=== PATIENT | female | born 1985 ===

== ENCOUNTER 2017-10-03 07:49 | Inpatient (IN) | payer OTHER ==
[2017-10-03] VITALS (14 sets, daily range): BP systolic 93–109; BP diastolic 41–63
[~2017-10-03] VITALS: Ht 162.6 cm; Wt 43.5 kg
[~2017-10-03 07:49] MED LIST: Bacitracin 50000 Units Vial ONE; CARISOPRODOL350 MG ORAL; IBUPROFEN600 MG ORAL; NORCO 5-325 TA1 EAC1 ORAL; Thrombin 5000 units TOPIC ONE; Vancomycin 1 GM in D5W 275 ML IVPB ONE; Vancomycin 1gm inj IVPB ONE
[2017-10-03] MEDS ORDERED: LR 1000ml ONE (08:00)
[2017-10-03] MEDS ORDERED: Dexamethasone 4mg/ml vial ONE (08:00)
[2017-10-03] MEDS ORDERED: NS Irrig 1000ml ONE (08:00)
[2017-10-03] MEDS ORDERED: fentaNYL 100 mcg/2 mL IV ONE (08:00)
[2017-10-03] MEDS ORDERED: Zemuron 50mg/5ml Inj IV ONE (08:00)
[2017-10-03] MEDS ORDERED: Sterile Water Irrig 1000ml IRRIG ONE (08:00)
[2017-10-03] MEDS ORDERED: Midazolam 2mg/2ml Inj ONE (08:00)
[2017-10-03] MEDS ORDERED: Propofol 200mg/20ml IV ONE (08:00)
[2017-10-03] MEDS ORDERED: Morphine Sulfate 10mg/ml Inj ONE (08:00)
[2017-10-03] MEDS ORDERED: Succinylcholine 20mg/ml 10ml vial ONE (08:00)
[2017-10-03] MEDS ORDERED: TransDerm Scop 1mg/72HR Patch TDERMAL ONE (09:19)
--- NOTE | 2017-10-03 10:25 | Pre-Procedure Note/Attestation ---
Pre-Procedure Note/Attestation Complete Prior to Procedure Planned Procedure: not applicable Procedure Narrative: C56 Artificial disc replacement Indications for Procedure Pre-Operative Diagnosis: C56 herniation Attestation I attest that I discussed the nature of the procedure; its benefits; risks and complications; and alternatives (and the risks and benefits of such alternatives ), prior to the procedure, with the patient (or the patient's legal senior patient account representative). I attest that, if there was a reasonable possibility of needing a blood transfusion, the patient (or the patient's legal senior patient account representative) was given the [facility] standardized written summary, pursuant to the Jimmy Escobar Blood Safety Act ([place] Health and Safety Code # 1645, as amended). I attest that I re-evaluated the patient just prior to the surgery and that there has been no change in the patient's H&P, except as documented below: Mitchell Kirkland MD Oct 03, 2017 10:25
--- NOTE | 2017-10-03 10:26 | Brief Operative Note ---
Immediate Post Operative Note Operative Note Chief Complaint: neck pain and radiculopathy Pre-op Diagnosis: C56 herniation Procedure: C56 Artificial disc replacement Post-op Diagnosis: same as pre-op Findings: consistent w/pre-op dx studies Surgeon: Marita Airport Driver: Francisco Anesthesiologist: JUDE Anesthesia: general Specimen: none Complications: none Condition: stable Estimated Blood Loss: minimal Drains: none Implant(s) used?: Yes - Prodisc C sz5 Mitchell Kirkland MD Oct 03, 2017 10:26
[2017-10-03] MEDS ORDERED: Norco 5mg/325mg tab ORAL PRN (10:30)
[2017-10-03] MEDS ORDERED: Naloxone 0.4mg/ml Inj IVP PRN (10:30)
[2017-10-03] MEDS ORDERED: HYDROcodone/Acetamin 7.5/325 tab ORAL PRN ×2 (10:30)
[2017-10-03] MEDS ORDERED: Morphine Sulfate 4mg/ml Inj SUBQ PRN ×2 (10:30)
[2017-10-03] MEDS ORDERED: Morphine Sulfate 2mg/ml Inj SUBQ PRN (10:30)
[2017-10-03] MEDS ORDERED: Propofol 1,000mg/ 100ml btl IV ONE (10:30)
[2017-10-03] MEDS ORDERED: HYDROmorphone 1mg/ml Carpuject IVP PRN (10:30)
[2017-10-03] MEDS ORDERED: Chloraseptic Spray 20mL Bottle ORAL PRN (10:30)
[2017-10-03] MEDS ORDERED: Milk of Magnesia 30ml Ud ORAL PRN (10:30)
--- NOTE | 2017-10-03 11:05 | Anethesia Preoperative Eval ---
Anesthesia Pre-op PMH/ROS General Date of Evaluation: Oct 03, 2017 Time of Evaluation: 10:05 Anesthesiologist: Mathieu ASA Score: ASA 2 Mallampati Score Class I : Soft palate, uvula, fauces, pillars visible Class II: Soft palate, uvula, fauces visible Class III: Soft palate, base of uvula visible Class IV: Only hard plate visible Mallampati Classification: Class II Surgeon: Marita Diagnosis: Cervikal radiculopathy Surgical Procedure: ACDF C5-C6 Anesthesia History: none Family History: no anesthesia problems Allergies: Coded Allergies: PENICILLINS (Verified Allergy, Intermediate, 10/02/17) ITCHING ,SWOLLEN LIPS Medications: see eMAR Past Medical History Cardiovascular: Denies: HTN, CAD, [place], valve dz, arrhythmia, other Pulmonary: Denies: asthma, COPD, SHLOMO, other Gastrointestinal/Genitourinary: Reports: GERD - mild; Denies: CRI, ESRD, other Neurologic/Psychiatric: Reports: other - chronic pain; Denies: dementia, CVA, depression/anxiety, TIA Endocrine: Denies: DM, hypothyroidism, steroids, other HEENT: Denies: cataract (L), cataract (R), glaucoma, AUGUSTINE (L), AUGUSTINE (R), other Hematology/Immune: Denies: anemia, DVT, bleeding disorder, other Musculoskeletal/Integumentary: Denies: OA, RA, DJD, DDD, edema, other PMH Narrative: as above PSxH Narrative: none Anesthesia Pre-op Phys. Exam Physician Exam Last Vital Signs Date Time Temp Pulse Resp B/P (MAP) Pulse Ox O2 Delivery O2 Flow Rate FiO2 10/03/17 08:50 97.7 74 20 109/63 100 Room Air 97.7 Constitutional: NAD Neurologic: CN 2-12 intact Cardiovascular: RRR, no M/R/G Respiratory: CTA Gastrointestinal: S/NT/ND Airway Exam Mallampati Score: Class II MO: full Neck: flexible ROM: full Teeth: intact Dentures: no upper, no lower Anesthesia Pre-op A/P Labs see chart Urine Test Test 10/03/17 08:00 Urine HCG, Qualitative Negative (NEGATIVE) Studies Pre-op Studies: EKG - NSR, CXR - WNL, echo - EF 55-60% Risk Assessment & Plan Assessment: ASA 2 Plan: GA with ETT PONV prevention scopolamine patch on, neuromonitoring Status Change Before Surgery: No Pre-Antibiotics Drug: Vancomycin 500 mg. Given Within 1 Hr of Incision: Yes Time Given: 10:48 JOIE CLARKE M.D. Oct 03, 2017 11:05
[2017-10-03] MEDS ORDERED: LR 1000ml 1,000 ML IVLG SCH (11:18)
[2017-10-03] MEDS ORDERED: Midazolam 2mg/2ml Inj IVP PRN (11:30)
[2017-10-03] MEDS ORDERED: Hydromorphone 0.5mg/0.5ml inj IVP PRN (11:30)
[2017-10-03] MEDS ORDERED: Meperidine 50mg/ml Inj(FOR RIGORS ONLY) IV PRN (11:30)
[2017-10-03] MEDS ORDERED: DiphenhydrAMINE 50mg/ml Inj IVP PRN (11:30)
[2017-10-03] MEDS ORDERED: Ketorolac 30mg Inj IV PRN (11:30)
--- NOTE | 2017-10-03 12:28 | Immediate Post-Op Evaluation ---
Immediate Post-Op Evalulation Immediate Post-Op Evalulation Procedure: ACDF C5-C6 Date of Evaluation: Oct 03, 2017 Time of Evaluation: 12:27 IV Fluids: 1000 Blood Products: none Estimated Blood Loss: <50 Urinary Output: none Blood Pressure Systolic: 96 Blood Pressure Diastolic: 47 Pulse Rate: 64 Respiratory Rate: 20 O2 Sat by Pulse Oximetry: 99 Temperature (Fahrenheit): 98.2 Pain Score (1-10): 2 Nausea: No Vomiting: No Complications none Patient Status: reacts, patent, extubated, none Hydration Status: adequate JOIE CLARKE M.D. Oct 03, 2017 12:28
--- NOTE | 2017-10-03 14:09 | Diagnostic Imaging Report ---
Indication: Pain, intraoperative Technique: Intraoperative images Comparison: none Findings: Intraoperative images demonstrate a surgical tool projecting over the C5-6 disc. Subsequent images demonstrate placement of a disc prosthesis at C5-6 which appears well aligned Impression: Intraoperative imaging, as described
--- NOTE | 2017-10-03 14:41 | General Progress Note ---
Assessment/Plan Assessment/Plan neck pain and radiculopathy C56 herniation C56 Artificial disc replacement PLAN 1. incentive spirometry 2.SCD 3. PT evaluation and therapy 4. Hydration 5. Pain management 6. discharge once stable with outpatient follow up Subjective Allergies: Coded Allergies: PENICILLINS (Verified Allergy, Intermediate, 10/02/17) ITCHING ,SWOLLEN LIPS Subjective post op Objective Last 24 Hour Vital Signs Date Time Temp Pulse Resp B/P (MAP) Pulse Ox O2 Delivery O2 Flow Rate FiO2 10/03/17 13:48 97.6 10/03/17 13:34 97.6 63 15 97/57 100 Nasal Cannula 3.0 97.6 10/03/17 13:20 61 12 93/60 100 Nasal Cannula 3.0 10/03/17 13:10 63 13 98/57 100 Nasal Cannula 3.0 10/03/17 13:07 98.2 10/03/17 13:00 60 15 100/60 100 Nasal Cannula 3.0 10/03/17 12:50 58 14 101/58 100 Simple Mask 6.0 10/03/17 12:40 64 16 101/55 100 Simple Mask 6.0 10/03/17 12:30 71 18 98/54 100 Simple Mask 6.0 10/03/17 12:28 208.8 64 20 99 10/03/17 12:25 65 16 97/48 100 Simple Mask 6.0 10/03/17 12:18 98.2 62 17 94/41 100 Simple Mask 6.0 98.2 10/03/17 08:50 97.7 74 20 109/63 100 Room Air 97.7 Laboratory Tests 10/03/17 08:00: Urine HCG, Qualitative Negative Height (Feet): 5 Height (Inches): 4.00 Weight (Pounds): 96 Objective WDWN NAD clear breath sounds bilaterally without rhonchi or wheeze [id number] without MRG NABS nontender no HSM no CCE nonfocal ROSALBA SPRAGUE Oct 03, 2017 14:41
[2017-10-03] MEDS: NS w/KCl 20mEq 1,000 ML IV SCH (16:14)
[2017-10-03] MEDS: Dexamethasone 4mg/ml vial IVP SCH (17:47)
[2017-10-03] MEDS: Docusate 100mg cap ORAL SCH (17:52)
[2017-10-03] MEDS: Vancomycin 750mg/NS 250ml IVPB SCH (20:16)
[2017-10-03] MEDS ORDERED: Vancomycin 1 GM in D5W 275 ML IV SCH (21:00)
[2017-10-04] VITALS: BP 94/57
[2017-10-04] MEDS: Dexamethasone 4mg/ml vial IVP SCH ×3 (00:03→11:41)
[2017-10-04] MEDS: NS w/KCl 20mEq 1,000 ML IV SCH ×2 (00:03→11:30)
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
[2017-10-04 04:00] VITALS: BP 94/57
[2017-10-04 08:00] VITALS: BP 95/55
[2017-10-04] MEDS: Docusate 100mg cap ORAL SCH (08:15)
[2017-10-04] MEDS: Vancomycin 750mg/NS 250ml IVPB SCH (08:15)
--- NOTE | 2017-10-04 09:31 | General Progress Note ---
Assessment/Plan Assessment/Plan neck pain and radiculopathy C56 herniation C56 Artificial disc replacement PLAN 1. incentive spirometry as able 2. SCD 3. PT evaluation and therapy 4. dc home today Subjective Allergies: Coded Allergies: PENICILLINS (Verified Allergy, Intermediate, 10/02/17) ITCHING ,SWOLLEN LIPS Subjective post op Objective Last 24 Hour Vital Signs Date Time Temp Pulse Resp B/P (MAP) Pulse Ox O2 Delivery O2 Flow Rate FiO2 10/04/17 07:56 98.1 10/04/17 06:12 98.1 10/04/17 04:00 98.1 64 18 94/57 100 Room Air 98.1 10/04/17 00:00 98.0 76 20 94/57 100 Room Air 98.0 10/03/17 20:00 98.1 78 20 94/57 100 Room Air 98.1 10/03/17 16:00 97.6 79 20 93/60 100 Nasal Cannula 3.0 97.6 10/03/17 14:06 97.8 63 19 98/61 100 97.8 10/03/17 13:48 97.6 10/03/17 13:45 98.3 69 18 93/58 100 Nasal Cannula 3.0 98.3 10/03/17 13:34 97.6 63 15 97/57 100 Nasal Cannula 3.0 97.6 10/03/17 13:20 61 12 93/60 100 Nasal Cannula 3.0 10/03/17 13:10 63 13 98/57 100 Nasal Cannula 3.0 10/03/17 13:07 98.2 10/03/17 13:00 60 15 100/60 100 Nasal Cannula 3.0 10/03/17 12:50 58 14 101/58 100 Simple Mask 6.0 10/03/17 12:40 64 16 101/55 100 Simple Mask 6.0 10/03/17 12:30 71 18 98/54 100 Simple Mask 6.0 10/03/17 12:28 208.8 64 20 99 10/03/17 12:25 65 16 97/48 100 Simple Mask 6.0 10/03/17 12:18 98.2 62 17 94/41 100 Simple Mask 6.0 98.2 Intake and Output 10/03/17 10/04/17 19:00 07:00 Intake Total 1840 ml 1300.000 ml Output Total 50 ml 0 ml Balance 1790 ml 1300.000 ml Intake Oral 240 ml IV Total 1600 ml 1300.000 ml Output Stool Total 0 ml Estimated Blood Loss 50 ml # Voids 5 Height (Feet): 5 Height (Inches): 4.00 Weight (Pounds): 96 Objective WDWN NAD clear breath sounds bilaterally without rhonchi or wheeze [id number] without MRG NABS nontender no HSM no CCE nonfocal ROSALBA SPRAGUE Oct 04, 2017 09:31
--- NOTE | 2017-10-04 10:01 | 48 Hour Post Anesthesia Eval ---
Post Anesthesia Evaluation Procedure: ACDF C5-C6 Date of Evaluation: Oct 04, 2017 Time of Evaluation: 09:25 Blood Pressure Systolic: 92 0: 52 Pulse Rate: 68 Respiratory Rate: 18 Temperature (Fahrenheit): 97.6 O2 Sat by Pulse Oximetry: 98 Airway: patent Nausea: No Vomiting: No Pain Intensity: 2 Hydration Status: adequate Cardiopulmonary Status: stable Mental Status/LOC: patient returned to baseline Follow-up Care/Observations: n/a Post-Anesthesia Complications: none Follow-up care needed: ready to discharge JOIE CLARKE M.D. Oct 04, 2017 10:01
--- NOTE | 2017-10-04 10:45 | Discharge Summary ---
DATE OF ADMISSION: 10/03/2017 DATE OF DISCHARGE: 10/04/2017 PROCEDURE PERFORMED DURING ADMISSION: C5-C6 artificial disk replacement. REASON FOR ADMISSION: C5-C6 herniation. HOSPITAL COURSE/TREATMENT RENDERED: DISCHARGE PHYSICAL EXAMINATION: 1. The patient was ambulating with and without the assistance of physical therapy. 2. Prior to discharge home, incision was clean and dry with minimal swelling. 3. Follows commands. 4. Alert and oriented. 5. Zayas discontinued, voiding. 6. Incentive spirometer at bedside. 7. IVF hep-locked. MOTOR: Demonstrates expected postoperative bulk and tone. Moves biceps, triceps, and deltoid musculature on command. Moves hip flexors, quadriceps, tibialis anterior, EHL, gastrocsoleus musculature on command as well. TREATMENT RENDERED: 1. Daily nursing care. 2. Physical therapy. 3. Occupational therapy. 4. Intravenous medications. 5. Oral medications. 6. Daily postoperative examinations by Spine Surgery team. CONDITION OF PATIENT ON DISCHARGE: The condition on discharge is stable for discharge to home. DISCHARGE INSTRUCTIONS: Our specific instructions relating to physical activity, medications, diet, and follow-up care are detailed in our standard operative folder and were given to this patient prior to surgery. We will however summarize these briefly as stated below. Regarding physical activity, we would like the patient to limit their flexion, extension, and rotation. We also require a limitation on their bending, lifting, and twisting. All medication has been called in prior to surgery to their pharmacy of choice. They can resume their regular diet once tolerated. We would like them to shower and limit soaking the wound in a tub/Jacuzzi/the ocean for a period of one month or until the incision is completely healed. We will have them follow up in our office in three weeks' time for their regularly scheduled appointment. They understand to call our office tomorrow to schedule the time for their three-week followup appointment. The patient will notify us should they experience any increase in the severity of pain, redness/swelling/drainage from their incision. Mitchell Kirkland M.D. DR: Kwame JOB#: [id number] CC:
[2017-10-04 12:00] VITALS: BP_SYST 105; BP_SYST 95; BP_DIAS 55; BP_DIAS 60
[2017-10-04] MEDS ORDERED: Tubing IV Secondary IV ONE (13:14)
== END 2017-10-04 13:15 | disposition home or self-care (01) | DRG 518 ==
LOC: SDSOVERFLO 07:49 → 3E 14:00
PROC: 0RR30JZ Replacement of Cervical Vertebral Disc with Synthetic Substitute, Open Approach (ICD-10-PCS; principal; 2017-10-03 10:30)
DX: M50.122 Cervical disc disorder at C5-C6 level with radiculopathy (principal); M48.02 Spinal stenosis, cervical region; V43.5 Car driver injured in collision with car, pick-up truck or van in traffic accident; Z88.0 Allergy status to penicillin
CPT/HCPCS: 36415; 72020; 76001; 81025; 86850; 86900; 86901; 87081; 94003; 94150; J2250; J2405

== ENCOUNTER 2018-05-08 05:34 | Inpatient (IN) | payer OTHER ==
[2018-05-08] VITALS (11 sets, daily range): BP systolic 100–118; BP diastolic 61–85
[~2018-05-08] VITALS: Ht 162.6 cm; Wt 40.8 kg
[~2018-05-08 05:34] MED LIST changes: -Bacitracin 50000 Units Vial ONE; +FAMOTIDINE20 MG ORAL; -Thrombin 5000 units TOPIC ONE; -Vancomycin 1 GM in D5W 275 ML IVPB ONE; -Vancomycin 1gm inj IVPB ONE
[2018-05-08] MEDS ORDERED: Zemuron 50mg/5ml Inj IV ONE (06:24)
[2018-05-08] MEDS ORDERED: fentaNYL 100 mcg/2 mL IV ONE (06:37)
[2018-05-08] MEDS ORDERED: Midazolam 2mg/2ml Inj ONE (06:37)
[2018-05-08] MEDS ORDERED: Lidocaine 1% Plain 30 ml INJ ONE (06:39)
[2018-05-08] MEDS ORDERED: Dexamethasone 4mg/ml vial ONE (06:42)
[2018-05-08] MEDS ORDERED: Lidocaine 1% MPF 10mg/ml 5ml ONE (06:42)
[2018-05-08] MEDS ORDERED: Vancomycin 1gm inj IVPB ONE (06:42)
[2018-05-08] MEDS ORDERED: Sodium Chloride 10ml vial INJ ONE (06:42)
[2018-05-08] MEDS ORDERED: Ropivacaine 5mg/ml Vial 30ml INJ ONE (06:43)
[2018-05-08] MEDS ORDERED: Gelfoam Size TOPIC ONE (06:43)
[2018-05-08] MEDS ORDERED: Thrombin 5000 units TOPIC ONE (06:43)
[2018-05-08] MEDS ORDERED: Bacitracin 50000 Units Vial ONE (06:43)
[2018-05-08] MEDS ORDERED: Bupivacaine w/Epi 0.5% 30ml Vial INJ ONE (06:43)
--- NOTE | 2018-05-08 06:49 | Anethesia Preoperative Eval ---
Anesthesia Pre-op PMH/ROS General Date of Evaluation: May 08, 2018 Time of Evaluation: 07:21 Anesthesiologist: Roxanna ASA Score: ASA 2 Mallampati Score Class I : Soft palate, uvula, fauces, pillars visible Class II: Soft palate, uvula, fauces visible Class III: Soft palate, base of uvula visible Class IV: Only hard plate visible Mallampati Classification: Class II Surgeon: Marita Diagnosis: Back Pain Surgical Procedure: R L4-S1 Microdiscectomy, Hemilaminotomy Anesthesia History: none Family History: no anesthesia problems Allergies: Coded Allergies: PENICILLINS (Verified Allergy, Intermediate, 10/02/17) ITCHING ,SWOLLEN LIPS Medications: see eMAR Patient NPO?: Yes NPO Date: May 07, 2018 NPO Time: 2129 Past Medical History Gastrointestinal/Genitourinary: Reports: GERD Hematology/Immune: Reports: anemia PSxH Narrative: ACDF Anesthesia Pre-op Phys. Exam Physician Exam Last Vital Signs Date Time Temp Pulse Resp B/P (MAP) Pulse Ox O2 Delivery O2 Flow Rate FiO2 05/08/18 06:24 98.1 67 20 101/61 (74) 100 05/08/18 05:56 Room Air Constitutional: NAD Neurologic: CN 2-12 intact Cardiovascular: RRR Respiratory: CTA Gastrointestinal: S/NT/ND Airway Exam Mallampati Score: Class II MO: full ROM: limited Teeth: intact Anesthesia Pre-op A/P Labs Urine Test Test 05/08/18 06:00 Urine HCG, Qualitative Negative (NEGATIVE) Risk Assessment & Plan Assessment: ASA 2 Plan: GA, SED, GlideScope Go Status Change Before Surgery: No Pre-Antibiotics Dru Gram s Ancef IV Given Within 1 Hr of Incision: Yes Time Given: 07:36 Abel Mcknight MD May 08, 2018 06:49
[2018-05-08] MEDS ORDERED: Vancomycin 1 GM in D5W 275 ML IVPB ONE (07:00)
--- NOTE | 2018-05-08 07:10 | Immediate Post-Op Evaluation ---
Immediate Post-Op Evalulation Immediate Post-Op Evalulation Procedure: R L4-S1 Microdiscectomy, Hemilaminotomy Date of Evaluation: May 08, 2018 Time of Evaluation: 10:04 IV Fluids: 1000 LR Blood Products: 0 Estimated Blood Loss: 8 Urinary Output: 0 Blood Pressure Systolic: 118 Blood Pressure Diastolic: 77 Pulse Rate: 80 Respiratory Rate: 12 O2 Sat by Pulse Oximetry: 100 Temperature (Fahrenheit): 97 Pain Score (1-10): 3 Nausea: No Vomiting: No Complications 0 Patient Status: awake, reacts, patent, extubated, none Hydration Status: adequate Dru Grams Ancef IV Given Within 1 Hr of Incision: Yes Time Given: 07:36 Abel Mcknight MD May 08, 2018 07:10
--- NOTE | 2018-05-08 07:30 | Pre-Procedure Note/Attestation ---
Pre-Procedure Note/Attestation Complete Prior to Procedure Planned Procedure: not applicable Procedure Narrative: Right sided L45 and L5S1 hemilaminotomy foraminotomy microdiscectomy Indications for Procedure Pre-Operative Diagnosis: Right sided hnp and radiculopathy Attestation I attest that I discussed the nature of the procedure; its benefits; risks and complications; and alternatives (and the risks and benefits of such alternatives ), prior to the procedure, with the patient (or the patient's legal client support representative). I attest that, if there was a reasonable possibility of needing a blood transfusion, the patient (or the patient's legal client support representative) was given the [place] [facility] standardized written summary, pursuant to the Jimmy Escobar Blood Safety Act ([place] Health and Safety Code # 1645, as amended). I attest that I re-evaluated the patient just prior to the surgery and that there has been no change in the patient's H&P, except as documented below: Mitchell Kirkland MD May 08, 2018 07:30
--- NOTE | 2018-05-08 07:32 | Brief Operative Note ---
Immediate Post Operative Note Operative Note Chief Complaint: back and leg pain Pre-op Diagnosis: Right sided hnp at L45, L5S1 and radiculopathy Procedure: Right sided L45 and L5S1 hemilaminotomy foraminotomy microdiscectomy Post-op Diagnosis: same as pre-op Findings: consistent w/pre-op dx studies Surgeon: Marita Database Security Expert: Melissa Anesthesiologist: Roxanna Anesthesia: general Specimen: none Complications: none Condition: stable Fluids: IVF Estimated Blood Loss: none Drains: none Implant(s) used?: No Mitchell Kirkland MD May 08, 2018 07:32
[2018-05-08] MEDS ORDERED: LR 1000ml 1,000 ML IVLG SCH (08:40)
[2018-05-08] MEDS ORDERED: Metoclopramide 10mg/2ml Inj IVP PRN ×3 (08:45→13:15)
[2018-05-08] MEDS ORDERED: HYDROcodone/Acetamin 7.5/325 tab ORAL PRN ×3 (08:45→13:00)
[2018-05-08] MEDS ORDERED: Atropine Sulfate 0.4mg/ml inj IVP PRN (08:45)
[2018-05-08] MEDS ORDERED: DiphenhydrAMINE 50mg/ml Inj IVP PRN (08:45)
[2018-05-08] MEDS ORDERED: Norco 5mg/325mg tab ORAL PRN ×2 (08:45→13:00)
[2018-05-08] MEDS ORDERED: Midazolam 2mg/2ml Inj IVP PRN (08:45)
[2018-05-08] MEDS ORDERED: Ketorolac 30mg Inj IV PRN ×2 (08:45)
[2018-05-08] MEDS ORDERED: fentaNYL 100 mcg/2 mL IV PRN (08:45)
[2018-05-08] MEDS ORDERED: Meperidine 50mg/ml Inj(FOR RIGORS ONLY) IVP PRN (08:45)
[2018-05-08] MEDS ORDERED: Hydromorphone 0.5mg/0.5ml inj IVP PRN (08:45)
[2018-05-08] MEDS ORDERED: LORazepam Inj 2mg/ml 1ml IV PRN (08:45)
[2018-05-08] MEDS ORDERED: Acetaminophen (Non formulary) 100 ML IV ONE (08:45)
[2018-05-08] MEDS ORDERED: oxyCODONE HCL/Acetaminophen 5/325mg ORAL PRN (08:45)
[2018-05-08] MEDS ORDERED: Morphine Sulfate 2mg/ml Inj IV PRN (13:00)
[2018-05-08] MEDS ORDERED: Morphine Sulfate 4mg/ml Inj (IV/IM USE ONLY) IV PRN (13:00)
[2018-05-08] MEDS ORDERED: HYDROmorphone 1mg/ml Carpuject IVP PRN (13:00)
[2018-05-08] MEDS ORDERED: Naloxone 0.4mg/ml Inj IVP PRN (13:00)
[2018-05-08] MEDS ORDERED: Milk of Magnesia 30ml Ud ORAL PRN (13:00)
[2018-05-08] MEDS: Dexamethasone 4mg/ml vial IVP SCH ×2 (13:18→19:50)
[2018-05-08] MEDS ORDERED: Chloraseptic Spray 20mL Bottle ORAL PRN (14:00)
--- NOTE | 2018-05-08 14:03 | Diagnostic Imaging Report ---
Indication: Intraoperative imaging; back pain. Findings: Fluoroscopic imaging obtained intraoperatively. Fluoroscopic time: 3.8 seconds Number fluoroscopic images: Single Single image showing instrument posterior to L4-5 and L5-S1. IMPRESSION: Intraoperative imaging
[2018-05-08] MEDS: NS w/KCl 20mEq 1,000 ML IV SCH (14:25)
--- NOTE | 2018-05-08 14:54 | 48 Hour Post Anesthesia Eval ---
Post Anesthesia Evaluation Procedure: R L4-S1 Microdiscectomy, Hemilaminotomy Date of Evaluation: May 08, 2018 Time of Evaluation: 14:54 Blood Pressure Systolic: 117 0: 79 Pulse Rate: 79 Respiratory Rate: 15 Temperature (Fahrenheit): 98 O2 Sat by Pulse Oximetry: 100 Airway: patent Nausea: No Vomiting: No Pain Intensity: 2 Hydration Status: adequate Cardiopulmonary Status: Stable Mental Status/LOC: patient returned to baseline Follow-up Care/Observations: 0 Post-Anesthesia Complications: 0 Follow-up care needed: ready to discharge Abel Mcknight MD May 08, 2018 14:54
[2018-05-08] MEDS: Docusate 100mg cap ORAL SCH (18:02)
[2018-05-08] MEDS: Morphine Sulfate 4mg/ml Inj (IV/IM USE ONLY) IV PRN (20:55)
[2018-05-08] MEDS: Vancomycin 1 GM in D5W 275 ML IVPB SCH (21:11)
[2018-05-09] VITALS: BP 95/53
[2018-05-09] MEDS: Dexamethasone 4mg/ml vial IVP SCH ×2 (02:09→07:20)
[2018-05-09] MEDS: NS w/KCl 20mEq 1,000 ML IV SCH ×2 (02:10→10:00)
[2018-05-09 04:00] VITALS: BP 93/53
[2018-05-09] MEDS: Morphine Sulfate 4mg/ml Inj (IV/IM USE ONLY) IV PRN (05:34)
[2018-05-09] MEDS ORDERED: NS Irrig 1000ml ONE (07:30)
[2018-05-09] MEDS ORDERED: Sterile Water Irrig 1000ml IRRIG ONE (07:30)
[2018-05-09] MEDS ORDERED: LR 1000ml ONE (07:30)
[2018-05-09] MEDS ORDERED: Propofol 1,000mg/ 100ml btl IV ONE (07:30)
[2018-05-09 08:00] VITALS: BP 101/56
[2018-05-09] MEDS: Docusate 100mg cap ORAL SCH (08:44)
[2018-05-09] MEDS: Vancomycin 1 GM in D5W 275 ML IVPB SCH (08:45)
--- NOTE | 2018-05-09 17:02 | Discharge Summary ---
DATE OF ADMISSION: 05/08/2018 DATE OF DISCHARGE: 05/09/2018 PROCEDURE PERFORMED DURING ADMISSION: Right-sided L4-L5 and L5-S1 microdiscectomy. REASON FOR ADMISSION: Herniated nucleus pulposus. HOSPITAL COURSE/TREATMENT RENDERED: . DISCHARGE PHYSICAL EXAMINATION: 1. The patient was ambulating with and without the assistance of physical therapy. 2. Prior to discharge home incision was clean and dry with minimal swelling. 3. Follows commands. 4. Alert and oriented. 5. Zayas discontinued, voiding. 6. Incentive spirometer at bedside. 7. IVF hep locked. MOTOR: Demonstrates expected postoperative bulk and tone. Moves biceps, triceps, and deltoid musculature on command. Moves hip flexors, quadriceps, tibialis anterior, EHL, gastrocsoleus musculature on command as well. TREATMENT RENDERED: 1. Daily nursing care. 2. Physical Therapy. 3. Occupational Therapy. 4. Intravenous medications. 5. Oral medications. 6. Daily postoperative examinations by Spine surgery team. CONDITION OF PATIENT ON DISCHARGE: The condition on discharge is stable for discharge to home. DISCHARGE INSTRUCTIONS: Our specific instructions relating to physical activity, medications, diet, and followup care are detailed in our standard operative folder and were given to this patient prior to surgery. We will however summarize these briefly as stated below. Regarding physical activity, we would like the patient to limit their flexion, extension and rotation. We also require a limitation on their bending, lifting, and twisting. All medication has been called in prior to surgery to their pharmacy of choice. They can resume their regular diet once tolerated. We would like them to shower and limit soaking the wound in a tub/Jacuzzi/the ocean for a period of one month or until the incision is completely healed. We will have them follow up in our office in three weeks time for their regularly scheduled appointment. They understand to call our office tomorrow to schedule the time for their three week followup appointment. The patient will notify us should they experience any increase in the severity of pain, redness/swelling/ or drainage from their incision. Mitchell Kirkland M.D. DR: KATTY/TURNER JOB#: [id number] CC:
--- NOTE | 2018-05-09 17:46 | Operative Note - Dictated ---
DATE OF OPERATION: 05/08/2018 SURGEON: Mitchell Kirkland M.D., Orthopaedic Spine Surgeon. DONOR RELATIONS COORDINATOR SURGEON: Julio Torres M.D. ANESTHESIOLOGIST: Abel Mcknight M.D. ANESTHESIA: General endotracheal anesthesia. PREOPERATIVE DIAGNOSES: 1. Intractable back pain. 2. Intractable leg pain. 3. Worsening radiculopathy. 4. Weakness. 5. Herniated nucleus pulposus, L4-L5 and L5-S1 herniation. 6. Neural foraminal stenosis, L4-L5 and L5-S1. POSTOPERATIVE DIAGNOSES: 1. Intractable back pain. 2. Intractable leg pain. 3. Worsening radiculopathy. 4. Weakness. 5. Herniated nucleus pulposus, L4-L5 and L5-S1 herniation. 6. Neural foraminal stenosis, L4-L5 and L5-S1. PROCEDURES PERFORMED: 1. Right-sided L4-L5 and L5-S1 microdiscectomy. 2. L4-L5 and L5-S1 hemilaminotomy, foraminotomy, and medial facetectomy. 3. L4-L5 and L5-S1 neural foraminotomy through a transpedicular intraforaminal approach. 4. Use of intraoperative microscope. 5. Supervision and interpretation of intraoperative fluoroscopy. 6. Supervision and interpretation of somatosensory-evoked potential and free-running EMG monitoring. ESTIMATED BLOOD LOSS: Less than 100 mL. COMPLICATIONS: None. INDICATIONS FOR THE PROCEDURE: Michael presents for intractable back pain and radiculopathy. The patient tried and failed a prolonged course of conservative management, including but not limited to chiropractic therapy, physical therapy, nonsteroidal anti-inflammatory drugs, medication, ice packs as well as epidural injection. Despite these therapies, the patient still developed recalcitrant pain and elected for definitive management in the form of right-sided L4-L5 and L5-S1 microdiscectomy, L4-L5 and L5-S1 hemilaminotomy, foraminotomy and medial facetectomy, and L4-L5 and L5-S1 neural foraminotomy through a transpedicular intraforaminal approach. We had a long discussion with Michael regarding definitive surgical treatment options. The patient's MRI demonstrated herniated nucleus pulposus, L4-L5 and L5-S1 herniation, neural foraminal stenosis of L4-L5 and L5-S1 and as a result, I felt Michael would benefit from the discectomy as well as neural foraminotomy at this level. We had a long discussion with the patient regarding the risks, alternatives, and benefits of surgery. Our description of the risks included a discussion in person as well as a signed consent which detailed all pertinent risks and the procedure itself. Briefly, our discussion included but was not limited to infection, bleeding, pseudarthrosis, spinal cord injury, neurovascular injury, dural tear, CSF leak, neuropathy, paralysis, permanent weakness/drop foot, paresthesias blindness, palsy, and weakness. The patient understood there may be a need for revision surgery or additional procedures. Approach-related complications including dysphonia, dysphagia, blindness, permanent vocal cord and neural injury, hematoma, swallowing and breathing difficulty. Medical complications including liver, kidney, shock, and cardiopulmonary failure. Anesthesia complications including , swelling, damage to the musculature, larynx (voice injury or loss), esophagus (throat), trachea, blood vessels and muscles (muscular sprain) and lungs (pneumothorax) during this surgical procedure. Injury to deeper structures may be temporary or permanent. The patient understood these and elected to proceed. A written and verbal consent was given. We discussed the pros and cons of all the alternatives. We discussed the uncertainties associated with the decision. Afterwards I assessed the patient's understanding and explored their preferences. All questions were answered and no guarantees were given. Medical clearance was obtained prior to surgery. OPERATIVE FINDINGS: A broad-based disc herniation at L4-L5 and L5-S1, which encroached on the thecal sac and neural foraminal elements therein. This disc was acute in nature and not calcified. It was mobile and free-floating and resected easily. There was also neural foraminal stenosis at L4-L5 and L5-S1. DESCRIPTION OF PROCEDURE: Under the benefit of general endotracheal anesthesia and with the assistance of the entire operative team, the patient was moved from the [facility] onto the operative table in the prone position on a Gomez frame. The head was secured and positioned appropriately. Bilateral arms were secured with Gel Pads and foam and all bony prominences were padded. The bilateral lower extremity SCD and ANTHONY hose were placed for DVT prophylaxis. A surgical timeout was called which corroborated our planned procedure. Preoperative antibiotics were administered within 30 minutes of the incision for prophylaxis. Decadron was given for preoperative steroids. Using lateral radiography, the operative levels were delineated. An incision was marked based on our interpretation of lateral radiography and afterwards the body was prepped and draped in the usual sterile manner. The family was notified that we were ready to commence surgery and were called in the waiting room hourly for updates. An incision was based on our lateral fluoroscopic image to center the incision at the L5-S1 interspace. The wound was prepped and draped in the usual sterile fashion. Using a scalpel, a midline incision was taken down through the skin and subcutaneous tissues until the overlying hemilaminae of L4-L5 and L5-S1 were visualized. Next, using meticulous hemostasis, hemilamotomies were dissected and retractors were placed. Using a [employer] dental, we confirmed placement at the L4-L5 and L5-S1 interspace. We next turned our attention to our decompression. A standard hemilaminotomy, foraminotomy, medial facetectomy was performed at each level in standard fashion using a Midas-Soren type AM8 drill bit, straight and angled curettage, and [place] 4 rongeurs until the lateral thecal sac margin and traversing nerve root was visualized. All remainders of the ligamentum flavum and lateral bony margins were resected in total with angled curettage and [place] 4 rongeurs until the lateral thecal sac margin and traversing nerve root was visualized and decompressed. We next turned our attention toward our L4-L5 and L5-S1 microdiscectomy on the right side. A [place] 4 was used to gently mobilize the thecal sac medially and this was held retracted with a bayonetted nerve root retractor. It was at this point that we noted a large broad-based disc protrusion with encroachment dorsally on the thecal sac neural foraminal contents. A bayonet and nerve root retractor was then placed carefully to retract the thecal sac and a discectomy was performed using a combination of a long-handled #15 blade scalpel, downgoing and straight pituitaries, and downgoing curettage. Afterward the disc space was irrigated twice with 20 mL of antibiotic-impregnated saline. All loose and free-floating disc fragments were carefully resected with a narrow pituitary. Having been satisfied with our decompression after our discectomy of all neural elements, we next turned our attention to our neural foraminoplasty/foraminotomy. This was performed through a transpedicular intraforaminal approach using an access probe followed by a neuro-check device, which confirmed ventral placement of our nerve root. Once we confirmed we were safe, we next turned our attention towards placement of our size 10 file under direct microscopic visualization and under lateral fluoroscopy. Using pre- and post-reciprocation imaging, we were able to visualize our direct decompression given the reciprocation allowed for re-creation of the neural foraminal arch at L4-L5 and L5-S1. Afterwards hemostasis was obtained with 60 mL of antibiotic-impregnated saline followed by FloSeal and Gelfoam. After sponge and needle count were found to be correct, next we turned our attention to closure. Closure consisted of 1-0 Vicryl in standard interrupted fashion. Zosyn was placed deep to the fascia and superficial to the fascia for antibiotic prophylaxis. Skin closure was performed with 2-0 Vicryl in interrupted fashion followed by a running Monocryl for the skin. Final dressings consisted of Dermabond for the superficial skin, Telfa, and Tegaderm. The patient tolerated the procedure well. The patient was extubated after the conclusion of surgery without incident. We discussed the findings of the surgery with the family upon completion of the case. At this point, the patient will be transferred to the spine floor for further observation. Mitchell Kirkland M.D. DR: BRETT JOB#: [id number] CC:
== END 2018-05-09 13:32 | disposition home or self-care (01) | DRG 520 ==
LOC: SDSOVERFLO 05:34 → 3E 10:00
PROC: 0SB20ZZ Excision of Lumbar Vertebral Disc, Open Approach (ICD-10-PCS; principal; 2018-05-08 07:00)
PROC: 0SB40ZZ Excision of Lumbosacral Disc, Open Approach (ICD-10-PCS; principal; 2018-05-08 07:00)
PROC: 01NB0ZZ Release Lumbar Nerve, Open Approach (ICD-10-PCS; principal; 2018-05-08 07:00)
DX: M51.16 Intervertebral disc disorders with radiculopathy, lumbar region (principal); M51.17 Intervertebral disc disorders with radiculopathy, lumbosacral region; M48.061 Spinal stenosis, lumbar region without neurogenic claudication; M48.07 Spinal stenosis, lumbosacral region; V89.2XXS Person injured in unspecified motor-vehicle accident, traffic, sequela; K21.9 Gastro-esophageal reflux disease without esophagitis; R30.0 Dysuria
CPT/HCPCS: 36415; 72020; 76001; 81025; 86850; 86900; 86901; 87081; 94003; 94150; J2250; J2405